=== PATIENT | female | born 1945 | race Caucasian/White ===

== ENCOUNTER → 2018-12-09 | Outpatient (CLI) | payer MEDICARE, BC ==
[2018-12-09 08:49] VITALS: BP 157/68; PULSE 77
--- NOTE | 2018-12-09 11:15 | STRESS ---
DATE OF SERVICE: 12/09/2018 PROCEDURE PERFORMED: Lexiscan Cardiolite study. TECHNIQUE: Ms. Pollock was infused with usual dose of Lexiscan followed by the Cardiolite injection given per protocol. She did develop symptoms of mild chest pressure and shortness of breath. These symptoms resolved spontaneously and did not require reversal medication. Resting ECG: Sinus rhythm, rate of 75, normal axis and intervals, early transition noted in the precordial leads with J-point elevation in the anterior leads. Similar findings were seen on the post hyperventilation and standing ECGs. No significant ST-segment changes or T- wave abnormalities were seen with Lexiscan infusion or during the post infusion. No significant dysrhythmias were noted during the monitoring. She did experience symptoms as reported above. IMPRESSION: Unremarkable Lexiscan portion of Lexiscan Cardiolite study. Interpretation of the Cardiolite portion of the study is pending at this time. Moy Louise MD /[id number]
--- NOTE | 2018-12-14 10:49 | NM ---
Myocardial Perf Spect Multi INDICATION: CHEST PAIN COMPARISON: 2011 TECHNIQUE: Nuclear medicine myocardial perfusion scan was performed after IV administration of 9.6 millicuries uptake technetium 99m Myoview at rest and 30.5 millicuries of technetium 99m at stress (Lexiscan). FINDINGS: Myocardial perfusion: There is a inferior wall perfusion defect on the stress images. The this is a diminishes on the rest images with some persistent defect in the inferior lateral wall towards the apex Wall motion: Normal wall motion. LVEF stress: 78 % rest: 72% Other findings: None. IMPRESSION: Perfusion defect in the inferior wall suggests reversible ischemia Small fixed defect in the inferior lateral wall towards the apex may represent a small focus of previous infarct
== END ==
LOC: JP.ACU 07:06
PROVIDERS: ATTEND Internal Medicine
DX: R07.89 Other chest pain (principal); E11.9 Type 2 diabetes mellitus without complications; R06.00 Dyspnea, unspecified
CPT/HCPCS: 78452; 93017; 93018; A9500; J2785